=== PATIENT | female | born 1970 | race Two or more races ===

== ENCOUNTER 2019-05-23 10:49 | Emergency (ER) | payer MEDICAID ==
[~2019-05-23] VITALS: Ht 170.2 cm; Wt 99.8 kg
[2019-05-23 11:38] LABS: Alanine Aminotransferase 14 U/L (13-56); Albumin 3.7 g/dL (3.4-5.0); Anion Gap 6 (5-15); Blood Urea Nitrogen 14 mg/dL (7-18); Calcium 8.5 mg/dL (8.5-10.1); Carbon Dioxide 22 mmol/L (21-32); Chloride 107 mmol/L (98-107); Glucose 96 mg/dL (74-106); Sodium 135 mmol/L (136-145)
[2019-05-23 11:43] LABS: Alkaline Phosphatase 73 U/L (45-117); Aspartate Aminotransferase 14 U/L (15-37); BUN/Creatinine Ratio 18.2; Bilirubin, Total 0.3 mg/dL (0.2-1.0); GFR African American 103 mL/min; GFR Non-African American 85 mL/min; Total Protein 7.8 g/dL (6.4-8.2)
[2019-05-23 11:58] LABS: Basophils # (auto) 0 uL; Basophils % (auto) 0.7 % (0.0-2.0); Eosinophils # (auto) 0.1 uL; Eosinophils % (auto) 2.8 % (0.0-7.0); Hematocrit 28.5 % (36.0-46.0); Hemoglobin 8.4 g/dL (12.2-16.2); Lymphocytes # (auto) 1.2 uL; Mean Corpuscular Hemoglobin 17.8 pg (28.0-32.0); Mean Corpuscular Hgb Conc. 29.6 g/dL (32.0-36.0); Monocytes # (auto) 0.3 uL; Monocytes % (auto) 6.9 % (0.0-12.0); Neutrophils # (auto) 2.8 uL; Neutrophils % (auto) 62.6 % (37.0-80.0); Platelet Count (auto) 250 10^3/uL (140-450); Red Blood Cells 4.76 10^6/uL (4.0-5.20); Red Cell Distribution Width 18.7 % (11.8-14.3); White Blood Cell 4.4 10^3/uL (4.4-10.8)
[2019-05-23] MEDS ORDERED: MECLIZINE HCL 25 MG TAB PO ONE (14:15)
[2019-05-23] MEDS ORDERED: SODIUM CHLORIDE 0.9% 500 ML IV ONE (15:00)
[2019-05-23] MEDS ORDERED: SODIUM CHLORIDE 0.9% 1,000 ML IVB ONE (15:46)
[2019-05-23 16:27] LABS: Urine Bacteria NONE SEEN /hpf (None Seen); Urine Blood Negative /uL (Negative); Urine Mucus FEW (None Seen); Urine Specific Gravity 1.015 (1.001-1.035); Urine WBC 1 /hpf (0 - 5)
[2019-05-23 17:09] LABS: Beta HCG, Quantitative < 1 mlU/mL (1-3)
[2019-05-23 17:12] LABS: Thyroid Stimulating Hormone 1.68 uIU/mL (0.358-3.74)
[2019-05-23 18:00] VITALS: BP 108/71
== END 2019-05-23 18:59 | disposition home or self-care (01) ==
LOC: ER 10:52
DX: D50.9 Iron deficiency anemia, unspecified (principal); R42 Dizziness and giddiness
CPT/HCPCS: 36415; 70450; 71046; 80053; 81001; 82962; 83735; 84443; 84484; 84702; 85025; 93005; 96360; 96361; 99284; J8597

== ENCOUNTER 2019-08-08 03:13 | Inpatient (IN) | payer MEDICAID, SELFPAY ==
[~2019-08-08] VITALS: Ht 170.2 cm; Wt 107.3 kg
[2019-08-08 03:56] LABS: Basophils # (auto) 0 10 ^3/uL (0-0.2); Basophils % (auto) 0.2 % (0.0-2.0); Eosinophils # (auto) 0 10 ^3/uL (0-0.8); Monocytes # (auto) 0.2 10 ^3/uL (0-1.3); Monocytes % (auto) 5.5 % (0.0-12.0); Neutrophils # (auto) 3.6 10 ^3/uL (1.6-8.6); Nucleated Red Blood Cells % 0.2 %; White Blood Cell 4.3 10^3/uL (4.4-10.8)
[2019-08-08 03:58] LABS: Eosinophils % (auto) 0.1 % (0.0-7.0); Hemoglobin 10.8 g/dL (12.2-16.2); Lymphocytes # (auto) 0.5 10 ^3/uL (0.4-5.4); Mean Corpuscular Hemoglobin 21.7 pg (28.0-32.0); Mean Corpuscular Hgb Conc. 31.7 g/dL (32.0-36.0); Mean Corpuscular Volume 68.3 fL (80.0-100.0); Neutrophils % (auto) 83.2 % (37.0-80.0); Platelet Count (auto) 132 10^3/uL (140-450); Red Blood Cells 4.97 10^6/uL (4.0-5.20)
[2019-08-08 04:13] LABS: Albumin 3.4 g/dL (3.4-5.0); Anion Gap 10 (5-15); Blood Urea Nitrogen 6 mg/dL (7-18); Calcium 8.2 mg/dL (8.5-10.1); Carbon Dioxide 25 mmol/L (21-32); Chloride 100 mmol/L (98-107); Glucose 107 mg/dL (74-106); Potassium 3.4 mmol/L (3.5-5.1); Red Cell Distribution Width 22.9 % (11.8-14.3); Sodium 135 mmol/L (136-145)
[2019-08-08 04:14] LABS: Alanine Aminotransferase 23 U/L (13-56); Aspartate Aminotransferase 28 U/L (15-37); BUN/Creatinine Ratio 8.1; GFR African American 108 mL/min; GFR Non-African American 89 mL/min
[2019-08-08 04:19] LABS: Alkaline Phosphatase 67 U/L (45-117); Bilirubin, Total 0.4 mg/dL (0.2-1.0); Total Protein 8.4 g/dL (6.4-8.2)
[2019-08-08 04:23] LABS: Partial Thromboplastin Time 37.4 sec (23.64-32.05)
[2019-08-08] MEDS ORDERED: ACETAMINOPHEN 325 MG TAB PO ONE (06:30)
[2019-08-08] MEDS ORDERED: POTASSIUM EFFERVESENT TAB 25 MEQ PO ONE (08:00)
[2019-08-08 09:48] LABS: Urine Bacteria NONE SEEN /hpf (None Seen); Urine Blood Negative /uL (Negative); Urine Mucus FEW (None Seen); Urine Specific Gravity 1.017 (1.001-1.035); Urine WBC 3 /hpf (0 - 5)
[2019-08-08] MEDS ORDERED: NITROGLYCERIN 0.4 MG SL TAB SL PRN (13:45)
[2019-08-08] MEDS ORDERED: MORPHINE SULF INJ 2 MG/ML SYRINGE 1ML IV PRN (13:45)
[2019-08-08] MEDS ORDERED: ALBUTEROL SULF 2.5 MG/0.5ML(0.5%) NEB SOLN NEB PRN (14:30)
[2019-08-08] MEDS ORDERED: DEXTROSE (50%) 50ML SYRG IV PRN (14:30)
[2019-08-08] MEDS ORDERED: TEMAZEPAM 15 MG CAP PO PRN (14:30)
[2019-08-08] MEDS ORDERED: LACTULOSE 20Gm/30ML SOLN PO PRN (14:30)
[2019-08-08] MEDS ORDERED: cefTRIAXone 1GM/50ML D5W 50 ML IV ONE (14:30)
[2019-08-08 14:43] LABS: Amylase 66 U/L (25-115); Lipase 27 U/L (73-393)
[2019-08-08] MEDS: PROMETHAZINE HCL 25 MG/ML 1ML IV PRN ×2 (14:52→21:29)
[2019-08-08 14:55] VITALS: BP 113/75
--- NOTE | 2019-08-08 15:00 | NUR ---
COVID SWAB: SWAB FROM ER WAS SENT TO [facility] NOT IN HOUSE, CALLED [facility] COVID 19 SCREENING TEAM AND SPOKE TO PATSY TO CLARIFY IF PATIENT WOULD NEED TO BE RE SWABBED WITH IN PATIENT SWAB, PER PATSY, WE CAN WAIT FOR [facility] RESULT ALL IN HOUSE SAMPLES HAVE ALREADY BEEN RUN FOR TODAY. UPDATED PRIOR COLIN CASTRO THAT THERE WAS NO NEED FOR ANOTHER SWAB.
[2019-08-08] MEDS: ACCU-CHEK COMFORT CURVE STRIP VI SCH (17:56)
[2019-08-08] MEDS: SODIUM CHLORIDE 0.9% 1,000 ML IV SCH (17:56)
[2019-08-08 18:46] VITALS: BP 112/72
--- NOTE | 2019-08-08 19:30 | NUR ---
Opening Shift Note Assumed care of patient from Kiarra RN, eyes closed, respirations even and unlabored, appears asleep. Bed in lowest locked position, side rails upx 2, call light within reach, COVID [address]. Instructed on POC and to call for assist PRN, will continue to monitor for changes Q1hr and PRN.
[2019-08-08 20:00] VITALS: BP 128/74
[2019-08-08] MEDS: FAMOTIDINE 20 MG TAB PO SCH (21:03)
[2019-08-08] MEDS: ACETAMINOPHEN 500 MG TAB PO PRN (21:30)
--- NOTE | 2019-08-08 21:30 | NUR ---
Temp 101.5 degrees Fahrenheit orally and patient reporting 6/10 abdominal cramping and nausea. Blankets removed, ice packs applied, temperature in room decreased. Will medicate as ordered (see emar) and continue to monitor. Addendum: 08/08/19 at 2207 by REGAN OLSON RN RN ADDITION: Patient requesting Tylenol fro pain as well as temperature. Will continue care.
[2019-08-09] VITALS: BP 112/71
--- NOTE | 2019-08-09 | NUR ---
Temperature reassessed, 101.2. Temperature of room noted to be still warm, temperature of room adjusted again, will reassess. Patient reports no pain at this time. Will continue to monitor.
[2019-08-09] MEDS: SODIUM CHLORIDE 0.9% 1,000 ML IV SCH (00:18)
[2019-08-09 04:00] VITALS: BP 110/69
[2019-08-09] MEDS: ACCU-CHEK COMFORT CURVE STRIP VI SCH ×3 (05:46→13:13)
[2019-08-09] MEDS: ACETAMINOPHEN 500 MG TAB PO PRN ×2 (05:47→15:47)
--- NOTE | 2019-08-09 07:20 | NUR ---
Opening Shift Note Assumed care of patient, awake and alert. No S/S of distress/SOB or pain. Continue to run temp, cooling measures in place Instructed on POC and to call for assist PRN, will continue to monitor for changes Q1hr and PRN.
[2019-08-09 07:43] LABS: Basophils # (auto) 0 10 ^3/uL (0-0.2); Basophils % (auto) 0.3 % (0.0-2.0); Eosinophils # (auto) 0 10 ^3/uL (0-0.8); Monocytes # (auto) 0.2 10 ^3/uL (0-1.3)
[2019-08-09 07:44] LABS: Hematocrit 28.4 % (36.0-46.0); Lymphocytes # (auto) 0.6 10 ^3/uL (0.4-5.4); Lymphocytes % (auto) 18.4 % (10.0-50.0); Mean Corpuscular Hemoglobin 21.7 pg (28.0-32.0); Mean Corpuscular Hgb Conc. 31.6 g/dL (32.0-36.0); Mean Corpuscular Volume 68.7 fL (80.0-100.0); Neutrophils # (auto) 2.5 10 ^3/uL (1.6-8.6); Neutrophils % (auto) 74.3 % (37.0-80.0); Platelet Count (auto) 112 10^3/uL (140-450); Red Blood Cells 4.14 10^6/uL (4.0-5.20); White Blood Cell 3.4 10^3/uL (4.4-10.8)
[2019-08-09 07:50] LABS: Red Cell Distribution Width 22.9 % (11.8-14.3)
[2019-08-09 08:02] LABS: Albumin 2.5 g/dL (3.4-5.0); BUN/Creatinine Ratio 10.9; Calcium 7.3 mg/dL (8.5-10.1); Potassium 3.4 mmol/L (3.5-5.1)
[2019-08-09 08:04] LABS: Bilirubin, Total 0.3 mg/dL (0.2-1.0); Total Protein 6.4 g/dL (6.4-8.2)
[2019-08-09 08:30] VITALS: BP 107/64
[2019-08-09] MEDS: AZITHROMYCIN 500MG/ 250ML 250 ML IV SCH (09:37)
[2019-08-09] MEDS: cefTRIAXone 1GM/50ML D5W 50 ML IV SCH (09:37)
[2019-08-09] MEDS: FAMOTIDINE 20 MG TAB PO SCH ×2 (09:38→20:42)
[2019-08-09] MEDS: ENOXAPARIN SOD 40 MG/0.4 ML SYRINGE SC SCH (10:00)
[2019-08-09 12:20] VITALS: BP 117/71
[2019-08-09] MEDS ORDERED: POTASSIUM CHL 20 Meq TABLET PO ONE (13:00)
--- NOTE | 2019-08-09 14:37 | NUR ---
Patient postive for jorgito, pt and md notified, reports given to Chaya pt transfered to [facility], vs stable.
--- NOTE | 2019-08-09 14:40 | NUR ---
RECEIVED REPORT FROM GLORIA SHAW.
--- NOTE | 2019-08-09 14:40 | NUR ---
SPOKE TO DR. JIN. PER MD, CANCELL THE RESPIRATORY CULTURE. ORDERS RECEIVED, READ BACK AND VERIFIED.
--- NOTE | 2019-08-09 14:45 | NUR ---
SPOKE TO DR. JIN. ORDERS RECEIVED, READ BACK AND VERIFIED. SEE EMR FOR ORDERS.
--- NOTE | 2019-08-09 15:45 | NUR ---
PATIENT STATED THAT SHE HAS ABDOMINAL PAIN RATED AT A 3/10 AND DESCRIBED "CRAMPING". PATIENT GIVEN ACETAMINOPHEN FOR PAIN.
[2019-08-09 16:00] VITALS: BP 109/74
--- NOTE | 2019-08-09 19:30 | NUR ---
Opening Shift Note Assumed care of patient from Chaya RN, eyes closed, respirations even and unlabored, appears asleep. Bed in lowest locked position, side rails up x 2, call light within reach, COVID [address] Instructed on POC and to call for assist PRN, will continue to monitor for changes Q1hr and PRN.
[2019-08-09 20:00] VITALS: BP 112/71
[2019-08-10] VITALS: BP 113/71
[2019-08-10 04:00] VITALS: BP 122/66
[2019-08-10] MEDS: ACETAMINOPHEN 500 MG TAB PO PRN (05:41)
--- NOTE | 2019-08-10 05:41 | NUR ---
Patient reporting 3/10 abdominal cramping. Tylenol administered as ordered. Patient's temperature 98.8. Will continue to monitor.
--- NOTE | 2019-08-10 06:44 | NUR ---
Respiratory note: HR 87, RR 14, SPO2 93% ON RA, BS CLEAR/DIMINSIHED.. MDI GIVEN BY RN. PT TOLERATED WELL. NO SIGNS OR SYMPTOMS OF RESPIRATORY DISTRESS NOTED AT THIS TIME. Addendum: 08/10/19 at 0712 by NORA PRINGLE RT NO MDI GIVEN. O2 CHECK: HR 87, RR 14, SPO2 93% BS CLEAR AND DIMINISHED. NO SIGNS OR SYMPTOMS OF RESPIRATORY DISTRESS NOTED.
--- NOTE | 2019-08-10 06:46 | NUR ---
Closing Note Patient lying in bed, awake and alert. No s/s of distress. Denies pain at this time. Will endorse care to dayshift RN.
--- NOTE | 2019-08-10 07:39 | NUR ---
Opening Shift Note Assumed care of patient, awake and alert. No S/S of distress/SOB or pain. Instructed on POC and to call for assist PRN, will continue to monitor for changes Q1hr and PRN.
[2019-08-10 08:00] VITALS: BP 109/68
[2019-08-10] MEDS: ENOXAPARIN SOD 40 MG/0.4 ML SYRINGE SC SCH (10:00)
[2019-08-10] MEDS: AZITHROMYCIN 500MG/ 250ML 250 ML IV SCH (10:19)
[2019-08-10] MEDS: FAMOTIDINE 20 MG TAB PO SCH ×2 (10:20→22:12)
[2019-08-10] MEDS: cefTRIAXone 1GM/50ML D5W 50 ML IV SCH (10:23)
[2019-08-10] MEDS ORDERED: ACET-1304 PO (13:01)
[2019-08-10] MEDS ORDERED: FERR325T20 PO (13:01)
[2019-08-10] MEDS ORDERED: MULTTAB61 PO (13:02)
[2019-08-10] MEDS ORDERED: CHOL100055 PO (13:03)
[2019-08-10] MEDS ORDERED: CYAN1TAB14 PO (13:03)
[2019-08-10] MEDS ORDERED: IRON SUCROSE COMPLEX 200 MG in SODIUM CHL 0.9% 100 ML IV ONE (16:00)
[2019-08-10] MEDS ORDERED: ASCORBIC ACID 500 MG TAB PO ONE (16:45)
[2019-08-10] MEDS ORDERED: ACETAMINOPHEN 500 MG TAB PO PRN ×2 (16:45)
[2019-08-10] MEDS ORDERED: ZINC SULFATE 220mg CAP or TAB PO ONE (16:45)
[2019-08-10] MEDS: CHOLECALCIFEROL (VITD3) 1,000IU=25mCg TAB PO SCH (17:49)
[2019-08-10 18:00] VITALS: BP 118/80
--- NOTE | 2019-08-10 19:20 | NUR ---
Opening Shift Note Assumed care of patient, awake, alert and oriented x4, even and unlabored respirations on room air, no S/S of distress/SOB or pain. Patient able to ambulate and turn in bed independently, bed in lowest locked position, side rails up x2, call light within reach. Instructed on POC and to call for assist PRN, will continue to monitor for changes Q1hr and PRN.
[2019-08-10 22:00] VITALS: BP 115/74
[2019-08-10] MEDS: ALBUTEROL SULF HFA 90MCG INH 200DOSE IN SCH (22:12)
--- NOTE | 2019-08-11 01:24 | NUR ---
RT NOTE PT MDI TX GIVEN BY COLIN FLYNN. RT MADE SURE THAT COLIN FLYNN WAS EDUCATED IN THE PROPER WAY OF GIVING TX.
[2019-08-11 04:27] VITALS: BP 115/74
[2019-08-11] MEDS: ALBUTEROL SULF HFA 90MCG INH 200DOSE IN SCH ×3 (06:56→22:52)
--- NOTE | 2019-08-11 06:56 | NUR ---
Respiratory note: 1 PUFF (90MCG) OF ALBUTEROL TX GIVEN VIA MDI WITH CHAMBER BY RN. PT TOLERATED WELL. NO SIGNS OR SYMPTOMS OF RESPIRATORY DISTRESS NOTED AT THIS TIME. HR 69, RR 16, SPO2 95% ON RA, BS CLEAR/DIMINISHED.
--- NOTE | 2019-08-11 08:00 | NUR ---
OPENING SHIFT NOTE ASSUMED CARE OF PATIENT AWAKE AND ALERT. NO S/S OF DISTRESS NOTED OR COMPLAINTS OF PAIN. PATIENT IS SATTING 94% ON RA. WHILE PATIENT SLEEPS O2 SAT CAN GO LOW 86% ON RA. PATIENT UPDATED ON POC FOR THE DAY AND ALL QUESTIONS ANSWERED. USE OF INCENTIVE SPIROMETRY ENCOURAGED. BED IS IN LOWEST, LOCKED POSITION WITH SIDE RAILS UP X2 AND CALL LIGHT WITHIN REACH. WILL CONTINUE TO MONITOR Q1H AND PRN.
[2019-08-11 09:00] VITALS: BP 113/80
[2019-08-11] MEDS: ZINC SULFATE 220mg CAP or TAB PO SCH (09:40)
[2019-08-11] MEDS: ASCORBIC ACID 1,000 MG TAB PO SCH (09:40)
[2019-08-11] MEDS: CHOLECALCIFEROL (VITD3) 1,000IU=25mCg TAB PO SCH (09:40)
[2019-08-11] MEDS: FAMOTIDINE 20 MG TAB PO SCH ×2 (09:40→22:52)
[2019-08-11] MEDS: AZITHROMYCIN 500 MG TAB PO SCH (09:40)
[2019-08-11] MEDS: ENOXAPARIN SOD 40 MG/0.4 ML SYRINGE SC SCH (09:41)
--- NOTE | 2019-08-11 11:54 | NUR ---
assessment Patient is a 48 year old female who is alert and oriented. Patients cognitive abilities are intact. Prior to admission patient lived home with family and functioned independently. Patient informed me she is able to care for her own ADLs. Per patient she will return home to her prior living arrangements post discharge and family will transport her home. Patient informed me she was feeling weak, fever, and ABD pain and came to ER and was admitted. Patient is positive for Covid 19. Patients PCP is Dr Haas. Patient feels safe returning home on discharge. I informed patient her post discharge needs will be determined prior to discharge. I informed patient she has a right to speak to a 7th grade social studies teacher regarding all care. I informed patient she has a right to participate in any and all discharge planning. Patient does not have a POA and advanced directive. I have offered patient information on POA and advanced directives. I informed the patient the advantages and benefits of having an Advanced Directive. Patient verbalized understanding and agreed to discharge plan. Addendum: 08/11/19 at 1157 by Olivia RODRIGUEZ Amended: Links added.
[2019-08-11] MEDS ORDERED: IRON SUCROSE COMPLEX 200 MG in SODIUM CHL 0.9% 100 ML IV SCH (12:00)
[2019-08-11 13:00] VITALS: BP 105/72
--- NOTE | 2019-08-11 13:31 | NUR ---
Assumed care of patient, awake and alert. No S/S of distress/SOB or pain. Instructed on POC and to call for assist PRN, will continue to monitor for changes Q1hr and PRN.
--- NOTE | 2019-08-11 14:33 | NUR ---
Respiratory note: 1 PUFF (90MCG) OF ALBUTEROL TX GIVEN VIA MDI WITH CHAMBER BY RN. PT TOLERATED WELL. NO SIGNS OR SYMPTOMS OF RESPIRATORY DISTRESS NOTED AT THIS TIME. HR 85, RR 16, SPO2 96% ON 2L NC, BS CLEAR/DIMINISHED.
[2019-08-11 17:00] VITALS: BP 101/56
[2019-08-11] MEDS: FERROUS SULFATE 325 MG TAB PO SCH (17:47)
[2019-08-11] MEDS: Ensure Enlive Strawberry 8oz Bottle PO SCH (17:59)
--- NOTE | 2019-08-11 19:33 | NUR ---
Endorsed care to night RN Campos. Patient resting in bed, no distress, SOB, or pain noted at this time.
--- NOTE | 2019-08-11 22:52 | NUR ---
Respiratory note: PT'S SCHEDULED MDI TREATMENT WAS GIVEN BY COLIN MCDANIELS. HR 84 RR 18 SP02 96% ON 2L NASAL CANNULA.
[2019-08-12 04:00] VITALS: BP 97/63
[2019-08-12] MEDS: ALBUTEROL SULF HFA 90MCG INH 200DOSE IN SCH ×3 (05:54→22:00)
--- NOTE | 2019-08-12 05:54 | NUR ---
Respiratory note: PT'S SCHEDULED MDI TREATMENT WAS GIVEN BY COLIN MCDANIELS. HR 69 RR 20 SP02 97% ON 2L NASAL CANNULA
--- NOTE | 2019-08-12 07:30 | NUR ---
Opening Shift Note Assumed care of patient, awake and alert. No S/S of distress/SOB or pain. Instructed on POC and to call for assist PRN, will continue to monitor for changes Q1hr and PRN. Fall precautions in place per safety protocol.
[2019-08-12 08:00] VITALS: BP 97/63
[2019-08-12] MEDS: FERROUS SULFATE 325 MG TAB PO SCH ×2 (08:24→18:32)
[2019-08-12] MEDS: Ensure Enlive Strawberry 8oz Bottle PO SCH ×3 (08:24→21:47)
[2019-08-12] MEDS: FAMOTIDINE 20 MG TAB PO SCH ×2 (09:53→21:45)
[2019-08-12] MEDS: AZITHROMYCIN 500 MG TAB PO SCH (09:53)
[2019-08-12] MEDS: ZINC SULFATE 220mg CAP or TAB PO SCH (09:53)
[2019-08-12] MEDS: ASCORBIC ACID 1,000 MG TAB PO SCH (09:53)
[2019-08-12] MEDS: CHOLECALCIFEROL (VITD3) 1,000IU=25mCg TAB PO SCH (09:53)
[2019-08-12] MEDS: ENOXAPARIN SOD 40 MG/0.4 ML SYRINGE SC SCH (09:54)
--- NOTE | 2019-08-12 09:59 | NUR ---
José Stack regarding BP 160/88. Awaiting call back at this time. Will cont to monitor patient. Addendum: 08/12/19 at 1048 by MIGUEL GAN RN RN wrong patient.
[2019-08-12 12:00] VITALS: BP 101/67
--- NOTE | 2019-08-12 15:00 | NUR ---
Respiratory note: SCHEDULED MDI NOT DONE. PT STATED SHE DID NOT WANT IT AT THIS TIME. NO DISTRESS NOTED.
[2019-08-12 16:00] VITALS: BP 97/64
--- NOTE | 2019-08-12 16:26 | NUR ---
D/C Planning Per SS consult for home oxygen at 2 l/min. Faxed clinical information to [facility] requesting for oxygen to be deliver to front lobby.
--- NOTE | 2019-08-12 17:18 | NUR ---
MD Subramanian consulted patient over the phone. Home O2 to be arranged by social studies teacher. MD Subramanian place new orders. Will cont to monitor patient.
--- NOTE | 2019-08-12 17:30 | NUR ---
RECEIVED REPORT ON PATIENT. PATIENT RESTING IN BED AT THIS TIME. NO S/S OF DISTRESS OR SOB. BED IN LOWEST AND LOCKED POSITION WITH SIDE RAILS UP X2 AND CALL LIGHT WITH IN REACH. WILL CONTINUE TO MONITOR Q1HR AND PRN.
--- NOTE | 2019-08-12 17:33 | NUR ---
Endorsed report to COLIN Larkin. Patient in bed, no distress, sob, or pain noted at this time.
--- NOTE | 2019-08-12 18:20 | NUR ---
RN DELIVERED HOME O2 TO PATIENT AT BEDSIDE. RN EDUCATED PATIENT ON HOW TO USE THE EQUIPMENT. PATIENT VERBALIZED UNDERSTANDING.
--- NOTE | 2019-08-12 19:20 | NUR ---
Opening Shift Note Received report from anant Larkin RN. Assumed care of patient, awake and alert. No S/S of distress/SOB or pain. On room air saturating at 93. Instructed on POC and to call for assist PRN, will continue to monitor for changes Q1hr and PRN. Bed placed in lowest position, and call light within reach.
[2019-08-12 20:00] VITALS: BP 109/68
--- NOTE | 2019-08-12 20:00 | NUR ---
Food intake for dinner Patient states she does not have any appetite. Patient only ate pudding. Provided ensure, apple juice, jello and fresh ice water at bedside table and advise patient to munch on it when feels hungry.
--- NOTE | 2019-08-12 21:52 | NUR ---
Respiratory note: PT RECIEVED ON NC1L. PT IS AWAKE AND ALERT. NO RESP DISTRESS NOTED. SPO2 96%, HR 73, RR 20, BS CLR/DIM. PT REFUSING MDI BREATHING TX AT THIS TIME AND STATES SHE DOESN'T TAKE THEM. WILL CONTINUE TO MONITOR PT T/O SHIFT.
[2019-08-13 01:08] VITALS: BP 94/60
[2019-08-13 04:00] VITALS: BP 113/77
--- NOTE | 2019-08-13 05:15 | NUR ---
BLOOD DRAW DONE. PATIENT TOLERATED WELL.
[2019-08-13] MEDS: ALBUTEROL SULF HFA 90MCG INH 200DOSE IN SCH (06:36)
--- NOTE | 2019-08-13 06:36 | NUR ---
Respiratory note: PT IS AWAKE AND ALERT. NO SOB OR DISTRESS NOTED. SPO2 98%, HR 67, RR 16, BS CLEAR. PT REFUSING MDI TX AT THIS TIME AND STATES SHE DOESN'T TAKE THEM. RN AT BEDSIDE AND AWARE.
[2019-08-13 06:52] LABS: Basophils # (auto) 0 10 ^3/uL (0-0.2); Eosinophils # (auto) 0.1 10 ^3/uL (0-0.8); Hematocrit 32.1 % (36.0-46.0); Lymphocytes # (auto) 0.8 10 ^3/uL (0.4-5.4); Mean Corpuscular Hemoglobin 21.3 pg (28.0-32.0); Monocytes # (auto) 0.6 10 ^3/uL (0-1.3); Monocytes % (auto) 14.4 % (0.0-12.0)
[2019-08-13 06:55] LABS: Basophils % (auto) 0.4 % (0.0-2.0); Eosinophils % (auto) 1.9 % (0.0-7.0); Hemoglobin 10.1 g/dL (12.2-16.2); Lymphocytes % (auto) 18.2 % (10.0-50.0); Mean Corpuscular Hgb Conc. 31.3 g/dL (32.0-36.0); Mean Corpuscular Volume 67.9 fL (80.0-100.0); Neutrophils # (auto) 2.8 10 ^3/uL (1.6-8.6); Neutrophils % (auto) 65.1 % (37.0-80.0); Nucleated Red Blood Cells % 0.1 %; Platelet Count (auto) 202 10^3/uL (140-450); Red Blood Cells 4.73 10^6/uL (4.0-5.20); White Blood Cell 4.3 10^3/uL (4.4-10.8)
[2019-08-13 06:58] LABS: Red Cell Distribution Width 22.2 % (11.8-14.3)
--- NOTE | 2019-08-13 07:00 | NUR ---
PATIENT IS RESTING IN BED WITH EYES CLOSED, NO DISTRESS NOTED AND PATIENT DENIES PAIN, SATURATING AT 94% ON 2LNC.
[2019-08-13 07:07] LABS: Albumin 2.9 g/dL (3.4-5.0); Calcium 8.6 mg/dL (8.5-10.1); Potassium 3.3 mmol/L (3.5-5.1)
[2019-08-13 07:11] LABS: BUN/Creatinine Ratio 11.5; Bilirubin, Total 0.4 mg/dL (0.2-1.0); Total Protein 7.3 g/dL (6.4-8.2)
[2019-08-13] MEDS: Ensure Enlive Strawberry 8oz Bottle PO SCH (07:20)
--- NOTE | 2019-08-13 08:00 | NUR ---
OPENING SHIFT NOTE: PATIENT RESTING IN BED. RESPIRATIONS EVEN AND UNLABORED. NO S/S OF DISTRESS NOTED AT THIS TIME. PATIENT IS ALERT AND ORIENTED X4. PATIENT ON 1L NC. UPDATED ON POC. BED IN LOWEST LOCKED POSITION WITH CALL LIGHT WITHIN REACH. WILL CONTINUE CARE.
[2019-08-13] MEDS: FERROUS SULFATE 325 MG TAB PO SCH (09:07)
[2019-08-13] MEDS: ZINC SULFATE 220mg CAP or TAB PO SCH (09:10)
[2019-08-13] MEDS: ASCORBIC ACID 1,000 MG TAB PO SCH (09:11)
[2019-08-13] MEDS: CHOLECALCIFEROL (VITD3) 1,000IU=25mCg TAB PO SCH (09:11)
[2019-08-13] MEDS: FAMOTIDINE 20 MG TAB PO SCH (09:11)
[2019-08-13] MEDS: ENOXAPARIN SOD 40 MG/0.4 ML SYRINGE SC SCH (09:12)
[2019-08-13] MEDS: AZITHROMYCIN 500 MG TAB PO SCH (09:12)
[2019-08-13] MEDS ORDERED: POTASSIUM EFFERVESENT TAB 25 MEQ PO ONE (10:00)
--- NOTE | 2019-08-13 12:31 | NUR ---
Discharge instructions given as ordered. Encourage to follow up with PMD as instructed. Instructed to follow up with pcp in 1-2 weeks along with at 3 week follow up to reevaluate supplemental oxygen need. instructed to self-isolate for 3 weeks per m.d. request. provided with information regarding home oxygen use. All questions and concerns addressed. Patient verbalized understanding. Medication reconciliation form completed and copy given to patient. Telemetry unit returned to ICU. Patient taken to vehicle via wheelchair with all personal belongings, accompanied by staff and family member. No distress noted at time of departure.
== END 2019-08-13 12:31 | disposition home or self-care (01) | DRG 720 ==
LOC: ER 03:13 → TELE 03:14 → TELE-EAST 14:57
PROVIDERS: ADMIT Internal Medicine; ATTEND Internal Medicine Nephrology
DX: A41.89 Other specified sepsis (principal); U07.1 COVID-19; J96.01 Acute respiratory failure with hypoxia; D61.818 Other pancytopenia; D69.6 Thrombocytopenia, unspecified; E44.1 Mild protein-calorie malnutrition; J12.89 Other viral pneumonia; D50.9 Iron deficiency anemia, unspecified; E87.6 Hypokalemia; E66.9 Obesity, unspecified; Z68.37 Body mass index [BMI] 37.0-37.9, adult; N39.0 Urinary tract infection, site not specified
CPT/HCPCS: 36415; 71045; 76700; 80053; 81001; 82150; 82728; 82962; 83036; 83605; 83690; 83880; 84484; 85025; 85379; 85610; 85730; 87040; 87070; 87086; 87804; 87880; 93005; 94640; G0378; J0696; J1756